=== PATIENT | female | born 1970 | race Caucasian/White ===

== ENCOUNTER 2018-03-07 23:41 | Emergency (ER) | payer MEDICAID ==
[~2018-03-07] VITALS: Ht 162.6 cm; Wt 91.2 kg
[~2018-03-07 23:41] MED LIST: AZIT250T PO; BECL8.7A6 INH; CLOT15CR9 TOP; DIPH-423 PO; LEVA15HF4 IH; TRAZ-91 PO
[2018-03-08 00:14] VITALS: BP 118/71
[2018-03-08 00:32] LABS: BASOPHILS # (AUTO) 0.1 X10'3 (0-0.2); BASOPHILS % (AUTO) 0.8 % (0-1); EOSINOPHILS # (AUTO) 0.8 X10'3 (0-0.9); EOSINOPHILS % (AUTO) 9.2 % (0-6); HEMATOCRIT 42.6 % (35.0-45.0); HEMOGLOBIN 14.4 g/dl (12.0-16.0); LYMPHOCYTES # (AUTO) 3.3 X10'3 (1.1-4.8); LYMPHOCYTES % (AUTO) 35.7 % (21-51); MEAN CORPUSCULAR HEMOGLOBIN 32.8 PG (27.0-31.0); MEAN CORPUSCULAR HGB CONC 33.8 % (33.0-36.5); MEAN CORPUSCULAR VOLUME 96.9 FL (78-98); MEAN PLATELET VOLUME 8.2 FL (7.4-10.4); MONOCYTES # (AUTO) 0.6 X10'3 (0-0.9); MONOCYTES % (AUTO) 6.2 % (2-12); NEUTROPHILS # (AUTO) 4.4 X10'3 (1.8-7.7); NEUTROPHILS % (AUTO) 48.1 % (42-75); PLATELET COUNT 360 X10'3 (140-440); RED CELL DISTRIBUTION WIDTH 12.9 % (11.5-14.5); WHITE BLOOD COUNT 9.2 X10'3 (4.5-11.0)
[2018-03-08 00:44] LABS: ALANINE AMINOTRANSFERASE 23 U/L (12-78); ALBUMIN 3.8 G/DL (3.4-5.0); ALBUMIN/GLOBULIN RATIO 1.1 (1.1-1.5); ALKALINE PHOSPHATASE 81 IU/L (46-116); ANION GAP 9 (8-16); ASPARTATE AMINO TRANSFERASE 16 U/L (10-37); BILIRUBIN,TOTAL 0.2 MG/DL (0.1-1.0); BLOOD UREA NITROGEN 11 MG/DL (7-18); BUN/CREATININE RATIO 9.3 (6.6-38.0); CALCIUM 8.9 MG/DL (8.5-10.1); CHLORIDE 105 MMOL/L (99-107); CREATININE 1.18 MG/DL (0.40-0.90); GLUCOSE 94 MG/DL (70-104); POTASSIUM 3.5 MMOL/L (3.5-5.1); SODIUM 141 MMOL/L (135-145); TOTAL CARBON DIOXIDE 26.7 MMOL/L (24-32); TOTAL PROTEIN 7.3 G/DL (6.4-8.2); eGFR 49 ML/MIN
== END 2018-03-08 01:10 | disposition home or self-care (01) ==
LOC: ER 23:42
DX: R07.9 Chest pain, unspecified (principal); M25.512 Pain in left shoulder; M79.602 Pain in left arm; J44.9 Chronic obstructive pulmonary disease, unspecified; G89.29 Other chronic pain; G43.909 Migraine, unspecified, not intractable, without status migrainosus; F17.210 Nicotine dependence, cigarettes, uncomplicated; F15.90 Other stimulant use, unspecified, uncomplicated; Z88.2 Allergy status to sulfonamides; Z88.5 Allergy status to narcotic agent; Z79.899 Other long term (current) drug therapy; Z56.0 Unemployment, unspecified
CPT/HCPCS: 36415; 80053; 83735; 83880; 84484; 85025; 93005; 99285

== ENCOUNTER 2024-02-22 10:59 | Emergency (ER) | payer MEDICAID | END 2024-02-22 12:15 | disposition left against medical advice (07) | LOC: ER 11:00 | DX: N23 Unspecified renal colic (principal); Z53.21 Procedure and treatment not carried out due to patient leaving prior to being seen by health care provider; Z88.2 Allergy status to sulfonamides; Z88.8 Allergy status to other drugs, medicaments and biological substances ==